=== PATIENT | female | born 1980 ===

== ENCOUNTER 2017-09-28 12:56 | Inpatient (IN) ==
[2017-09-28] MEDS ORDERED: BUTORPHANOL 2 MG/ML VIAL IV PRN (13:00)
[2017-09-28] MEDS ORDERED: LACTATED RINGERS 500 ML IV PRN (13:00)
[2017-09-28] MEDS ORDERED: MEPERIDINE 50 MG/1 ML VIAL IV PRN (13:00)
[2017-09-28] MEDS ORDERED: ONDANSETRON 4 MG/2 ML VIAL IV PRN ×2 (13:00→20:15)
[2017-09-28] MEDS ORDERED: AMPICILLIN 2,000 MG VIAL ONE (13:10)
[2017-09-28] MEDS ORDERED: SODIUM CHLORIDE 0.9% 100 ML IV ONE (13:11)
[2017-09-28] MEDS: LACTATED RINGERS 1,000 ML IV SCH ×2 (13:19→14:17)
[2017-09-28] MEDS: AMPICILLIN INJ 2,000 MG in SODIUM CHLORIDE 0.9% 100 ML IV SCH ×2 (13:19→18:40)
[2017-09-28] MEDS ORDERED: OXYTOCIN/LR 20 UNIT/1,000 ML BAG IV SCH (13:30)
[2017-09-28 13:32] LABS: Basophils % 0.2 % (0.0-0.8); Eosinophils # 0.1 10*3/uL (0.0-0.87); Eosinophils % 0.8 % (0.00-10.9); Hematocrit 36.8 VOL% (35.7-47.0); Hemoglobin 11.8 GM/DL (12.0-16.0); Immature Granulocytes % 1.2 %; Immature Granulocytes Absolute 0.11 #; Lymphocytes # 1.7 10*3/uL (1.4-4.0); Lymphocytes % 18.4 % (21.3-54.2); Mean Corpuscular HGB Conc 32.1 GM/DL (32-36); Mean Corpuscular Hemoglobin 28 PG (27-34); Mean Platelet Volume 11.7 FL (9.6-12.0); Monocytes # 0.6 10*3/uL (0.11-0.8); Neutrophils # 6.5 10*3/uL (1.4-7.4); Neutrophils % 72.4 % (38.7-73.9); Platelet Count 202 T/CUMM (130-400); Red Blood Count 4.18 MC/CUMM (3.8-5.5); Red Cell Distribution Width 14.5 % (9.3-17.3)
[2017-09-28] MEDS ORDERED: hydrOXYzine HCL 25 MG/1 ML VIAL IM PRN ×2 (13:35→20:32)
[2017-09-28] MEDS ORDERED: ePHEDrine 50 MG/ML AMP IV PRN (13:35)
[2017-09-28] MEDS ORDERED: FAMOTIDINE 20 MG/2 ML VIAL IV ONE (13:35)
[2017-09-28] MEDS ORDERED: diphenhydrAMINE 50 MG/1 ML VIAL IV PRN ×2 (13:35)
[2017-09-28] MEDS ORDERED: PROMETHAZINE 25 MG/1 ML VIAL IM ONE (13:35)
[2017-09-28] MEDS ORDERED: LACTATED RINGERS 1,000 ML IV ONE (13:35)
[2017-09-28] MEDS ORDERED: CITRIC ACID/SODIUM CITRATE 30 ML UDCUP PO ONE (13:35)
[2017-09-28 13:49] LABS: Alanine Aminotransferase 18 U/L (13-56); Albumin 2.5 G/DL (3.4-5.0); Alkaline Phosphatase 214 U/L (45-117); Aspartate Amino Transferase 22 U/L (0-37); Bilirubin,Total < 0.39 MG/DL (0.2-1.0); Blood Urea Nitrogen 14 MG/DL (7-18); Calcium 8.9 MG/DL (8.5-10.1); Glucose 85 MG/DL (74-106); Osmolality,Calculated 274.7 MOS/KG (273-304); Potassium 4.3 MMOL/L (3.5-5.1); Sodium 138 MMOL/L (136-145); Total Protein 6.9 G/DL (6.4-8.3)
[2017-09-28] MEDS ORDERED: fentaNYL 2 MCG/ROPIV 0.2% EPID 150 ML EPIDURAL SCH (14:00)
[2017-09-28] MEDS ORDERED: OXYTOCIN 10 UNIT/ML VIAL IM ONE (17:51)
[2017-09-28] MEDS ORDERED: OXYTOCIN/LR 30 UNIT/1,000 ML BAG IV ONE (17:51)
[2017-09-28] MEDS ORDERED: OXYTOCIN 10 UNIT/ML VIAL ONE (17:53)
[2017-09-28] MEDS ORDERED: MORPHINE 10 MG/10 ML VIAL ONE (19:05)
[2017-09-28] MEDS ORDERED: MIDAZOLAM 2 MG/2 ML VIAL ONE (19:05)
[2017-09-28 19:08] LABS: Cord Arterial Blood HCO3 16.7 MMOL/L
[2017-09-28 19:12] LABS: Cord Venous Blood HCO3 23.3 MMOL/L; Cord Venous Blood PCO2 56.5 MMHG; Cord Venous Blood PO2 20.5 MMHG
[2017-09-28] MEDS ORDERED: RHO(D) IMMUNE GLOBULIN 300 MCG SYRINGE IM ONE (20:15)
[2017-09-28] MEDS ORDERED: ACETAMINOPHEN 325 MG TABLET PO PRN (20:15)
[2017-09-28] MEDS ORDERED: SIMETHICONE CHEW 80 MG TABLET PO PRN (20:15)
[2017-09-28] MEDS ORDERED: LACTATED RINGERS 1,000 ML IV SCH (20:15)
[2017-09-28] MEDS ORDERED: MAGNESIUM HYDROXIDE SUSP 30 ML UDCUP PO PRN (20:15)
[2017-09-28] MEDS ORDERED: OXYTOCIN/LR 20 UNIT/1,000 ML BAG IV ONE (20:15)
[2017-09-28] MEDS: HYDROmorphone 2 MG/1 ML VIAL IV PRN ×2 (20:40→22:32)
[2017-09-29] MEDS: DOCUSATE SODIUM 100 MG CAPSULE PO SCH ×3 (00:11→21:00)
[2017-09-29] MEDS ORDERED: ONDANSETRON 4 MG/2 ML VIAL IV PRN (01:27)
[2017-09-29] MEDS: ceFAZolin 1,000 MG in SYRINGE 1 EACH IV SCH ×2 (01:41→09:41)
[2017-09-29] MEDS: HYDROmorphone 2 MG/1 ML VIAL IV PRN (01:47)
[2017-09-29 06:06] LABS: Basophils % 0.1 % (0.0-0.8); Hemoglobin 11.2 GM/DL (12.0-16.0); Immature Granulocytes % 1.9 %; Immature Granulocytes Absolute 0.27 #; Lymphocytes # 1.1 10*3/uL (1.4-4.0); Lymphocytes % 7.8 % (21.3-54.2); Mean Corpuscular HGB Conc 32.9 GM/DL (32-36); Mean Corpuscular Hemoglobin 29 PG (27-34); Mean Corpuscular Volume 86.5 FL (87-102); Monocytes % 6.8 % (1.7-12.7); Neutrophils % 83.4 % (38.7-73.9); Platelet Count 186 T/CUMM (130-400); Red Blood Count 3.93 MC/CUMM (3.8-5.5); Red Cell Distribution Width 14.5 % (9.3-17.3); White Blood Count 14.3 T/CUMM (4-12)
[2017-09-29] MEDS: MULTIVITAMIN (PRENATAL) TABLET PO SCH (08:27)
[2017-09-29] MEDS: ENOXAPARIN 40 MG/0.4 ML SYRINGE SUBCUT SCH (10:23)
[2017-09-29] MEDS: IBUPROFEN 800 MG TABLET PO PRN ×2 (12:50→22:00)
[2017-09-29] MEDS ORDERED: ENOXAPARIN 40 MG/0.4 ML SYRINGE SUBCUT SCH (21:00)
[2017-09-30 09:22] VITALS: BP 136/72
[2017-09-30] MEDS: DOCUSATE SODIUM 100 MG CAPSULE PO SCH (10:06)
[2017-09-30] MEDS: IBUPROFEN 800 MG TABLET PO PRN (10:06)
[2017-09-30] MEDS: MULTIVITAMIN (PRENATAL) TABLET PO SCH (10:06)
[2017-09-30] MEDS: ENOXAPARIN 40 MG/0.4 ML SYRINGE SUBCUT SCH (10:06)
== END 2017-09-30 13:05 | disposition home or self-care (01) | DRG 765 ==
LOC: N.LDOUT 12:56 → N.LD 12:57 → N.OB 21:40
PROVIDERS: ADMIT Obstetrics & Gynecology; ATTEND Obstetrics & Gynecology

== ENCOUNTER 2021-09-15 19:25 | Inpatient (IN) ==
[2021-09-15] MEDS ORDERED: ZALEPLON 5 MG CAPSULE PO PRN (22:08)
[2021-09-15] MEDS ORDERED: NICOTINE 21 MG/24 HR PATCH TRANSDERM PRN (22:08)
[2021-09-15] MEDS ORDERED: hydrALAZINE 20 MG/1 ML VIAL IV PRN (22:08)
[2021-09-15] MEDS ORDERED: ACETAMINOPHEN 325 MG TABLET PO PRN (22:08)
[2021-09-15] MEDS ORDERED: diphenhydrAMINE CAP 25 MG CAPSULE PO PRN (22:08)
[2021-09-15] MEDS ORDERED: ONDANSETRON 4 MG/2 ML VIAL IV PRN (22:08)
[2021-09-15] MEDS ORDERED: ALBUTEROL/IPRATROPIUM 3 ML NEB RESP TX PRN (22:08)
[2021-09-15] MEDS ORDERED: guaiFENesin/DM ER 600-30 MG TABLET PO PRN (22:08)
[2021-09-15] MEDS ORDERED: GLUCAGON 1 MG VIAL IM PRN (22:08)
[2021-09-15] MEDS ORDERED: DOCUSATE SODIUM 100 MG CAPSULE PO PRN (22:08)
[2021-09-15] MEDS ORDERED: DEXTROSE 10% 250 ML BAG IV PRN (22:16)
[2021-09-15 22:19] LABS: Basophils % 0.2 % (0.0-0.8); Eosinophils # 0.1 10*3/uL (0.0-0.87); Hematocrit 36.6 VOL% (35.7-47.0); Hemoglobin 11.5 GM/DL (12.0-16.0); Immature Granulocytes % 1.3 %; Immature Granulocytes Absolute 0.15 #; Lymphocytes # 0.8 10*3/uL (1.4-4.0); Lymphocytes % 6.5 % (21.3-54.2); Mean Corpuscular HGB Conc 31.4 GM/DL (32-36); Mean Corpuscular Volume 88.8 FL (87-102); Mean Platelet Volume 11.4 FL (9.6-12.0); Monocytes % 7.5 % (1.7-12.7); Neutrophils % 83.5 % (38.7-73.9); Platelet Count 217 T/CUMM (130-400); Red Blood Count 4.12 MC/CUMM (3.8-5.5); Red Cell Distribution Width 13.9 % (9.3-17.3); White Blood Count 11.5 T/CUMM (4-12)
[2021-09-15 22:31] LABS: INR 1.1; PT Patient Result 11.9 SECS (10.5-12.0); Partial Thromboplastin Time 27.6 SECS (23.8-32.1)
[2021-09-15 22:34] LABS: Calcium 7.8 MG/DL (8.5-10.1); Potassium 3.5 MMOL/L (3.5-5.1)
[2021-09-15 22:46] LABS: ABG Base Excess -6.9 MMOL/L (-2.5-2.5); ABG HCO3 17.1 MMOL/L (20-26); ABG Oxygen Saturation 96.6 % (95-100); ABG PCO2 29.6 MM HG (35-48); ABG PO2 87.1 MM HG (80-95)
[2021-09-15 22:52] LABS: Lymphocytes 8 % (20-55); Platelet Estimate Adequate; Segmented Neutrophils 87 % (50-85); Total Cells Counted 100
[2021-09-15] MEDS ORDERED: SODIUM CHLORIDE 0.9% 1,000 ML IV ONE (22:52)
[2021-09-15] MEDS: SODIUM CHLORIDE 0.9% 1,000 ML IV SCH (23:30)
[2021-09-16] MEDS: PIPERACILLIN/TAZOBACTAM 3,375 MG in SODIUM CHLORIDE 0.9% 100 ML IV SCH ×3 (01:30→17:27)
[2021-09-16] MEDS ORDERED: CALCIUM GLUCONATE RIDER 1,000 MG/50 ML PREMIX IV ONE (05:24)
[2021-09-16 06:39] LABS: Basophils % 0.2 % (0.0-0.8); Eosinophils # 0.1 10*3/uL (0.0-0.87); Eosinophils % 0.5 % (0.00-10.9); Hematocrit 36.4 VOL% (35.7-47.0); Hemoglobin 11.2 GM/DL (12.0-16.0); Immature Granulocytes % 2.8 %; Immature Granulocytes Absolute 0.36 #; Lymphocytes # 0.9 10*3/uL (1.4-4.0); Lymphocytes % 6.9 % (21.3-54.2); Mean Corpuscular HGB Conc 30.8 GM/DL (32-36); Mean Corpuscular Volume 90.1 FL (87-102); Mean Platelet Volume 12.5 FL (9.6-12.0); Monocytes % 7.1 % (1.7-12.7); Neutrophils % 82.5 % (38.7-73.9); Platelet Count 239 T/CUMM (130-400); Red Blood Count 4.04 MC/CUMM (3.8-5.5); Red Cell Distribution Width 14.1 % (9.3-17.3); White Blood Count 12.8 T/CUMM (4-12)
[2021-09-16 07:07] LABS: Band Neutrophils 10 % (0-10); Calcium 8.1 MG/DL (8.5-10.1); Eosinophils 1 % (0-10); Lymphocytes 7 % (20-55); Metamyelocytes 2 %; Osmolality,Calculated 280.2 MOS/KG (273-304); Potassium 3.7 MMOL/L (3.5-5.1); Risk Ratio 6.15; Segmented Neutrophils 74 % (50-85); Thyroid Stimulating Hormone 2.96 uIU/ml (0.358-3.74); Total Cells Counted 100; VLDL Cholesterol 40.6 MG/DL
[2021-09-16 07:08] LABS: Microcytosis 1+
[2021-09-16] MEDS ORDERED: ENOXAPARIN 40 MG/0.4 ML SYRINGE SUBCUT SCH (09:00)
[2021-09-16] MEDS: PANTOPRAZOLE 40 MG TABLET PO SCH (09:17)
[2021-09-16] MEDS: SODIUM CHLORIDE 0.9% 1,000 ML IV SCH (09:18)
[2021-09-16] MEDS ORDERED: DEXTROSE 50% 25 GM/50 ML VIAL IV PRN (12:20)
[2021-09-16] MEDS ORDERED: GLUCAGON 1 MG VIAL IM PRN (12:20)
[2021-09-16] MEDS ORDERED: LIDOCAINE 1%/EPI INJ 20 ML VIAL ONE (12:23)
[2021-09-16] MEDS ORDERED: BUPIVACAINE MPF 0.25% 30 ML VIAL ONE (12:23)
[2021-09-16] MEDS ORDERED: fentaNYL 100 MCG/2 ML VIAL ONE ×2 (12:32→13:45)
[2021-09-16] MEDS ORDERED: FAMOTIDINE 20 MG/2 ML VIAL IV ONE (12:46)
[2021-09-16] MEDS ORDERED: VANCOMYCIN 500 MG VIAL ONE (13:41)
[2021-09-16] MEDS ORDERED: PHENYLEPHRINE 1 MG/10 ML SYRINGE IV ONE (13:41)
[2021-09-16] MEDS ORDERED: DEXAMETHASONE 4 MG/1 ML VIAL ONE (13:50)
[2021-09-16] MEDS ORDERED: SEVOFLURANE 1 UNIT/15 MINUTE INH ONE (13:50)
[2021-09-16] MEDS ORDERED: ONDANSETRON 4 MG/2 ML VIAL ONE (13:50)
[2021-09-16] MEDS ORDERED: LIDOCAINE 2% 5 ML VIAL ONE (13:50)
[2021-09-16] MEDS ORDERED: GLYCOPYRROLATE 0.4 MG/2 ML VIAL ONE (13:50)
[2021-09-16] MEDS ORDERED: propofoL 200 MG/20 ML VIAL IV ONE ×2 (13:50)
[2021-09-16] MEDS ORDERED: MEPERIDINE 25 MG/1 ML VIAL ONE ×2 (14:13→14:24)
[2021-09-16] MEDS: MEPERIDINE 25 MG/1 ML VIAL IV PRN ×2 (14:15→14:25)
[2021-09-16] MEDS ORDERED: PROMETHAZINE 25 MG/1 ML VIAL ONE (14:24)
[2021-09-16] MEDS ORDERED: ONDANSETRON 4 MG/2 ML VIAL IV PRN (14:27)
[2021-09-16] MEDS ORDERED: diphenhydrAMINE 50 MG/1 ML VIAL IV PRN (14:27)
[2021-09-16] MEDS ORDERED: HYDROmorphone 2 MG/1 ML VIAL IV PRN (14:27)
[2021-09-16] MEDS ORDERED: PROMETHAZINE INJ 25 MG in SODIUM CHLORIDE 0.9% 50 ML IV PRN (14:27)
[2021-09-16] MEDS ORDERED: VANCOMYCIN 1,000 MG VIAL ONE (14:36)
[2021-09-16] MEDS: VANCOMYCIN INJ 1,750 MG in SODIUM CHLORIDE 0.9% 500 ML IV SCH (14:54)
[2021-09-16] MEDS ORDERED: MAGNESIUM SULF RIDER 2 GM/50 ML PREMIX IV ONE (15:00)
[2021-09-16] MEDS ORDERED: DEXTROSE 10% 25 GM/250 ML BAG IV PRN (16:40)
[2021-09-16] MEDS: SODIUM BICARB INJ 50 MEQ in SODIUM CHLORIDE 0.45% 1,000 ML IV SCH (17:12)
[2021-09-16] MEDS: INSULIN LISPRO 100 UNIT/ML SUBCUT SCH ×2 (17:12→20:27)
[2021-09-17] MEDS: PIPERACILLIN/TAZOBACTAM 3,375 MG in SODIUM CHLORIDE 0.9% 100 ML IV SCH ×3 (00:03→18:03)
[2021-09-17] MEDS: SODIUM BICARB INJ 50 MEQ in SODIUM CHLORIDE 0.45% 1,000 ML IV SCH ×2 (04:01→18:04)
[2021-09-17 05:54] LABS: Basophils % 0.2 % (0.0-0.8); Hematocrit 32.1 VOL% (35.7-47.0); Hemoglobin 9.9 GM/DL (12.0-16.0); Immature Granulocytes % 1.1 %; Immature Granulocytes Absolute 0.13 #; Lymphocytes # 0.8 10*3/uL (1.4-4.0); Lymphocytes % 6.5 % (21.3-54.2); Mean Corpuscular HGB Conc 30.8 GM/DL (32-36); Mean Corpuscular Volume 90.4 FL (87-102); Mean Platelet Volume 11.6 FL (9.6-12.0); Monocytes % 6.8 % (1.7-12.7); Neutrophils % 85.4 % (38.7-73.9); Platelet Count 269 T/CUMM (130-400); Red Blood Count 3.55 MC/CUMM (3.8-5.5); Red Cell Distribution Width 14.3 % (9.3-17.3); White Blood Count 11.5 T/CUMM (4-12)
[2021-09-17 06:08] LABS: Osmolality,Calculated 283.7 MOS/KG (273-304)
[2021-09-17 06:12] LABS: Risk Ratio 9.92; VLDL Cholesterol 40.4 MG/DL
[2021-09-17 06:27] LABS: Band Neutrophils 7 % (0-10); Hypochromia Slight; Lymphocytes 7 % (20-55); Platelet Estimate Normal; Segmented Neutrophils 77 % (50-85); Total Cells Counted 100
[2021-09-17] MEDS: PANTOPRAZOLE 40 MG TABLET PO SCH (09:39)
[2021-09-17] MEDS: VANCOMYCIN INJ 1,750 MG in SODIUM CHLORIDE 0.9% 500 ML IV SCH (09:39)
[2021-09-17] MEDS: SODIUM HYPOCHLORITE 0.25% IRRIG 473 ML BOTTLE TOP SCH (12:00)
[2021-09-17] MEDS: INSULIN LISPRO 100 UNIT/ML SUBCUT SCH ×3 (12:20→21:33)
[2021-09-17] MEDS ORDERED: INSULIN GLARGINE 100 UNIT/ML SUBCUT SCH (21:00)
[2021-09-17] MEDS ORDERED: ATORVASTATIN 10 MG TABLET PO SCH (21:00)
[2021-09-18] MEDS: PIPERACILLIN/TAZOBACTAM 3,375 MG in SODIUM CHLORIDE 0.9% 100 ML IV SCH ×2 (00:42→09:46)
[2021-09-18] MEDS: SODIUM BICARB INJ 50 MEQ in SODIUM CHLORIDE 0.45% 1,000 ML IV SCH (04:05)
[2021-09-18] MEDS: VANCOMYCIN INJ 1,750 MG in SODIUM CHLORIDE 0.9% 500 ML IV SCH (05:17)
[2021-09-18] MEDS: PANTOPRAZOLE 40 MG TABLET PO SCH (09:46)
[2021-09-18] MEDS: SODIUM HYPOCHLORITE 0.25% IRRIG 473 ML BOTTLE TOP SCH (09:47)
[2021-09-18 16:24] VITALS: BP 132/75
[2021-09-18] MEDS: INSULIN LISPRO 100 UNIT/ML SUBCUT SCH (16:40)
[2021-09-19] MEDS ORDERED: LEVOFLOXACIN 500 MG TABLET PO SCH (09:00)
== END 2021-09-18 16:36 | disposition home or self-care (01) | DRG 981 ==
LOC: N.5E → SUATTDRO 22:08
PROVIDERS: ADMIT Internal Medicine; ATTEND Internal Medicine